=== PATIENT | male | born 1985 | race Asian ===

== ENCOUNTER 2017-03-14 05:56 | Day surgery (SDC) | payer BC ==
[2017-03-13 15:34] VITALS: BMI 26.2
[2017-03-14] MEDS ORDERED: CEFAZOLIN/Water 2 GM/20 ML SYRINGE ONE (06:33)
[2017-03-14] MEDS ORDERED: Fentanyl 250 MCG/5 ML VIAL ONE (06:45)
[2017-03-14 06:58] LABS: #Eosinphils 0.2 thou/uL (0.0-0.7); #Lymphocytes 1.3 thou/uL (1.20-3.40); #Monocytes 0.4 thou/uL (0.11-0.59); %Basophils 0.6 % (0.0-1.0); %Eosinophils 2.6 % (0.0-10.0); %Lymphocytes 19.2 % (21.0-51.0); %Monocytes 6.3 % (0.0-10.0); Hematocrit 40.8 % (42.0-52.0); Mean Platelet Volume 7.4 fL (7.4-10.4); Red Blood Cell (RBC) Count 4.45 mill/uL (4.70-6.10)
[2017-03-14 07:16] LABS: Anion Gap 14 mmol/L (10-20); BUN (Urea Nitrogen) 12 mg/dL (8.9-20.6); Calc. Creatinine Clearance 122 mL/min (70-130); Calcium 9.2 mg/dL (7.8-10.44); Carbon Dioxide 23 mmol/L (22-29); Chloride 105 mmol/L (98-107); Estimated GFR-MDRD 88
[2017-03-14] MEDS ORDERED: Midazolam HCl 2 mg/2 ml Vial ONE (07:45)
[2017-03-14] MEDS ORDERED: Bupivacaine/Epinephrine 0.25% 30 ML VIAL ONE (07:48)
[2017-03-14] MEDS ORDERED: Dexamethasone 20 MG/5 ML VIAL ONE (08:05)
[2017-03-14] MEDS ORDERED: Ketorolac Tromethamine 30 MG/ML VIAL ONE (08:05)
[2017-03-14] MEDS ORDERED: Ondansetron HCl/PF 4 MG/2 ML Vial ONE (08:05)
[2017-03-14] MEDS ORDERED: Propofol 200 MG/20 ML VIAL ONE (08:05)
[2017-03-14] MEDS ORDERED: Lidocaine 1% PF 5 ML VIAL ONE (08:05)
--- NOTE | 2017-03-14 19:16 | PDOC.OP ---
Operative Note - Operative Note Operative Note: PROCEDURE: Left supraclavicular incisional lymph node biopsy DATE OF PROCEDURE: 03/14/2017 SURGEON: Diane Vee M.D. PREOPERATIVE DIAGNOSES: Left supraclavicular lymph node suspicious for Hodgkin' s lymphoma POSTOPERATIVE DIAGNOSIS: Left supraclavicular lymph node suspicious for Hodgkin' s lymphoma HISTORY: Patient with a two-month history of enlarged left supraclavicular lymph node. On clinical exam this was very suspicious for lymphoma. FNA and core biopsy were performed under ultrasound guidance and these were suspicious but not diagnostic for Hodgkin's lymphoma. Open biopsy in the operating room was recommended. PROCEDURE IN DETAIL: After informed consent was obtained the patient was taken to the operating room he was placed in supine position and anesthesia by LMA was administered. He was prepped and draped in standard sterile fashion and local anesthesia infused the skin and subcutaneous tissues overlying the enlarged lymph node. A transverse skin incision was made in the direction of the skin lines and the platysma divided. The sternocleidomastoid was split in the direction of its fibers and dissection carried down to the lymph node. There was a large amount of fibrosis surrounding the lymph node and it was very adherent to adjacent structures. For this reason the decision was made to perform an incisional rather than an excisional biopsy. A portion of the anterior lymph node was resected sharply and hemostasis verified. The specimen was sent fresh to pathology who confirmed that there was adequate tissue for diagnosis. Additional local anesthesia was infused for postoperative pain management. The platysma was reapproximated with interrupted [id number] Monocryl sutures and the skin incision closed with a running subcuticular Monocryl suture. Dermabond dressings were placed and the patient was extubated and taken to the recovery room in good condition. Estimated blood loss was minimal. There were no complications. Specimen is portion of left supraclavicular lymph node.
== END 2017-03-14 10:53 | disposition home or self-care (01) ==
LOC: SDC 05:56
PROVIDERS: ATTEND Surgery
PROC: 07D73ZX Extraction of Thorax Lymphatic, Percutaneous Approach, Diagnostic (ICD-10-PCS; principal; 2017-03-14)
DX: C81.92 Hodgkin lymphoma, unspecified, intrathoracic lymph nodes (principal); Z98.890 Other specified postprocedural states; Z87.891 Personal history of nicotine dependence
CPT/HCPCS: 36415; 80048; 85025; 88184; 88307; 88333; 88341; 88342; J1100; J1885; J2001; J2250; J2405; J2704; J3010